=== PATIENT | female | born 1935 | race Caucasian/White ===

== ENCOUNTER 2018-10-27 22:52 | Inpatient (IN) | payer MEDICARE, BC | END 2018-10-31 16:00 | disposition home or self-care (01) | LOC: ER 22:52 → SUR 3N 10-28 02:51 | DX: J96.00 Acute respiratory failure, unspecified whether with hypoxia or hypercapnia (principal); J18.9 Pneumonia, unspecified organism; J44.1 Chronic obstructive pulmonary disease with (acute) exacerbation; J44.0 Chronic obstructive pulmonary disease with (acute) lower respiratory infection; Z87.891 Personal history of nicotine dependence ==